=== PATIENT | male | born 1945 | race African-American/Black ===

== ENCOUNTER 2018-11-09 23:20 | Emergency (ER) | payer MEDICARE ==
[~2018-11-09] VITALS: Ht 177.8 cm; Wt 77.1 kg
[~2018-11-09 23:20] MED LIST: MULT-548 PO; VITA400T4 PO
[2018-11-09 23:44] VITALS: BP 172/91
[2018-11-10 00:26] LABS: Basophils # (auto) 0 uL; Basophils % (auto) 0.6 % (0.0-2.0); Eosinophils # (auto) 0.1 uL; Eosinophils % (auto) 1.7 % (0.0-7.0); Hematocrit 43.1 % (41.0-53.0); Hemoglobin 13.8 g/dL (13.5-17.5); Lymphocytes # (auto) 1.4 uL; Lymphocytes % (auto) 21.4 % (10.0-50.0); Mean Corpuscular Hemoglobin 28.9 pg (28.0-32.0); Mean Corpuscular Hgb Conc. 32.2 g/dL (32.0-36.0); Mean Corpuscular Volume 89.8 fL (80.0-100.0); Monocytes # (auto) 0.5 uL; Monocytes % (auto) 7.7 % (0.0-12.0); Neutrophils # (auto) 4.3 uL; Neutrophils % (auto) 68.6 % (37.0-80.0); Nucleated Red Blood Cells % 0.1 %; Platelet Count (auto) 254 10^3/uL (140-450); Red Blood Cells 4.79 10^6/uL (4.5-5.90); Red Cell Distribution Width 14.6 % (11.8-14.3); White Blood Cell 6.3 10^3/uL (4.4-10.8)
[2018-11-10 00:32] LABS: Urine Bacteria FEW /hpf (None Seen); Urine Blood TRACE /uL (Negative); Urine Mucus FEW (None Seen); Urine Specific Gravity 1.021 (1.001-1.035); Urine WBC 1 /hpf (0 - 3)
[2018-11-10 00:39] LABS: INR 0.94 (0.9-1.15); Partial Thromboplastin Time 20.5 sec (23.78-33.04); Prothrombin Time 10.1 sec (9.27-12.13)
[2018-11-10 00:43] LABS: Albumin 3.7 g/dL (3.4-5.0); Anion Gap 8 (5-15); Blood Urea Nitrogen 19 mg/dL (7-18); Calcium 9.2 mg/dL (8.5-10.1); Carbon Dioxide 25 mmol/L (21-32); Chloride 107 mmol/L (98-107); Glucose 142 mg/dL (74-106); Lipase 133 U/L (73-393); Magnesium 2.4 mg/dL (1.6-2.6); Potassium 3.8 mmol/L (3.5-5.1); Sodium 140 mmol/L (136-145)
[2018-11-10 00:45] LABS: Alanine Aminotransferase 13 U/L (16-61); Amylase 83 U/L (25-115); Aspartate Aminotransferase 14 U/L (15-37); BUN/Creatinine Ratio 9.8; GFR African American 44 mL/min; GFR Non-African American 36 mL/min
[2018-11-10 00:51] LABS: Alkaline Phosphatase 80 U/L (45-117); Bilirubin, Total 0.3 mg/dL (0.2-1.0); Total Protein 7.6 g/dL (6.4-8.2)
== END 2018-11-10 03:22 | disposition left against medical advice (07) ==
LOC: ER 23:21
DX: R10.84 Generalized abdominal pain (principal); Z53.21 Procedure and treatment not carried out due to patient leaving prior to being seen by health care provider
CPT/HCPCS: 36415; 71046; 74176; 80053; 81001; 82150; 83690; 83735; 84484; 85025; 85610; 85730; 93005

== ENCOUNTER 2019-10-14 17:39 | Inpatient (IN) | payer MEDICARE ==
[~2019-10-14] VITALS: Ht 177.8 cm; Wt 72.9 kg
--- NOTE | 2019-10-14 | NUR ---
ASSESSMENT PERFORMED, PATIENT DENIED PAIN OR DISCOMFORT. PATIENT ABLE TO AMBULATE.
--- NOTE | 2019-10-14 03:00 | NUR ---
PATIENT HAS AN ORDER FOR CONTINUES IRRIGATION. ASKED CHARGE NURSE AND HOUSE SUP FOR SUPPLIES. ONCE THE UROLOGY CAR WAS PROVIDED, I PRECEDED TO DISCONTINUE THE ONE CATHETER TO START ONE WITH THREE LUMENS. PATIENT WAS NOT TOLERATING WELL THE PROCEDURE, HE WAS IN AGONIZING PAIN. CALLED ANOTHER RN FOR HELP, THE CATHETER WAS IN THE RIGHT PLACED, IT WAS DRAINING, HOWEVER THE IRRIGATION FLUID WAS NOT RUNNING. WE DISCONNECTED THE PORTS, IRRIGATED WITH A SYRINGE, A LOT OF BLOOD CLOTHS CAME OUT, THE ENTIRE TIME THE PATIENT WAS IN PAIN. WE RECONNECTED THE IRRIGATION AND STILL NOT RUNNING, SO WE STOPPED THE PROCEDURE AND DECIDED TO DISCONTINUE THE CATHETER ALL TOGETHER. IT WAS A LOT OF BLOOD STILL DRAINING FROM THE HEMATURIA, WE CLEANED AND DRIED THE PATIENT AND NOTIFIED CHARGE.
[2019-10-14 05:00] VITALS: BP 161/89
--- NOTE | 2019-10-14 05:00 | NUR ---
NOTIFIED VIVIANA MONTGOMERY OF THE UNSUCCESSFUL IRRIGATION CATHETER PLACEMENT. NO NEW ORDERS
[2019-10-14 18:29] LABS: Urine Bacteria NONE SEEN /hpf (None Seen); Urine Blood 3+ /uL (Negative); Urine WBC 14 /hpf (0 - 3)
[2019-10-14 18:40] LABS: Basophils # (auto) 0.1 10 ^3/uL (0-0.2); Basophils % (auto) 1.5 % (0.0-2.0); Eosinophils # (auto) 0.1 10 ^3/uL (0-0.8); Eosinophils % (auto) 1.3 % (0.0-7.0); Hematocrit 39.8 % (41.0-53.0); Hemoglobin 13.1 g/dL (13.5-17.5); Lymphocytes # (auto) 1.6 10 ^3/uL (0.4-5.4); Lymphocytes % (auto) 22.8 % (10.0-50.0); Mean Corpuscular Hemoglobin 29.5 pg (28.0-32.0); Mean Corpuscular Hgb Conc. 32.9 g/dL (32.0-36.0); Mean Corpuscular Volume 89.6 fL (80.0-100.0); Monocytes # (auto) 0.6 10 ^3/uL (0-1.3); Monocytes % (auto) 9.4 % (0.0-12.0); Neutrophils # (auto) 4.5 10 ^3/uL (1.6-8.6); Nucleated Red Blood Cells % 0.2 %; Platelet Count (auto) 238 10^3/uL (140-450); Red Blood Cells 4.44 10^6/uL (4.5-5.90); Red Cell Distribution Width 15.5 % (11.8-14.3); White Blood Cell 6.9 10^3/uL (4.4-10.8)
[2019-10-14 18:54] LABS: Urine Specific Gravity 1.028 (1.001-1.035)
[2019-10-14 18:55] LABS: Albumin 3.7 g/dL (3.4-5.0); Calcium 8.3 mg/dL (8.5-10.1); Chloride 110 mmol/L (98-107); Potassium 3.6 mmol/L (3.5-5.1); Sodium 142 mmol/L (136-145)
[2019-10-14 18:56] LABS: INR 1.01 (0.9-1.15)
[2019-10-14 19:03] LABS: Alanine Aminotransferase 15 U/L (16-61); Alkaline Phosphatase 80 U/L (45-117); Anion Gap 8 (5-15); Aspartate Aminotransferase 14 U/L (15-37); BUN/Creatinine Ratio 8.9; Bilirubin, Total 0.3 mg/dL (0.2-1.0); Blood Urea Nitrogen 21 mg/dL (7-18); Carbon Dioxide 24 mmol/L (21-32); GFR African American 35 mL/min; GFR Non-African American 29 mL/min; Glucose 112 mg/dL (74-106); Total Protein 7.3 g/dL (6.4-8.2)
[2019-10-14] MEDS ORDERED: SODIUM CHLORIDE 0.9% 1,000 ML IVB ONE (21:06)
[2019-10-14] MEDS ORDERED: cefTRIAXone 1GM/50ML D5W 50 ML IV ONE (21:30)
[2019-10-14] MEDS ORDERED: MORPHINE SULF INJ 2 MG/ML SYRINGE 1ML IV PRN (21:30)
[2019-10-14] MEDS: NITROGLYCERIN 0.4 MG SL TAB SL PRN ×3 (21:38→22:00)
[2019-10-14] MEDS ORDERED: LACTATED RINGER'S 1,000 ML IV ONE (22:00)
[2019-10-14] MEDS ORDERED: cloNIDine HCL 0.1 MG TAB PO PRN (22:15)
--- NOTE | 2019-10-14 23:18 | NUR ---
Patient arrived to the unit, patient was introduced to RN and METAL SPINNER, vital signs taken, B/P 171/76, patient complaining of pain, will perform assessment once patient has settle down in his room. POC explained to patient. F/C noted, draining dark red . Will continue to monitor.
[2019-10-14 23:30] VITALS: BP 171/76
[2019-10-14] MEDS ORDERED: NIFEdipine ER 30 MG TAB PO ONE (23:45)
[2019-10-14] MEDS ORDERED: hydrALAZINE HCL 20 MG/ML VL IV PRN (23:45)
[2019-10-14 23:57] VITALS: BP 171/76
[2019-10-15] MEDS ORDERED: NITROGLYCERIN 0.4 MG SL TAB SL PRN
[2019-10-15] MEDS ORDERED: DEXTROSE (50%) 50ML SYRG IV PRN
[2019-10-15] MEDS ORDERED: ASPI-404 PO (01:11)
[2019-10-15] MEDS ORDERED: IBUP800T24 PO (01:11)
[2019-10-15] MEDS ORDERED: CHOL20007 PO (01:11)
[2019-10-15] MEDS ORDERED: CLOP75TA28 PO (01:11)
[2019-10-15] MEDS ORDERED: PNEUMOCOCCAL VACC POLYS 25 MCG/0.5 ML VIAL IM ONE (01:15)
[2019-10-15] MEDS ORDERED: INFLUENZA QUAD 2019-2020 0.5ml SYRG IM ONE (01:15)
[2019-10-15] MEDS: LACTATED RINGER'S 1,000 ML IV SCH ×4 (02:14→21:56)
[2019-10-15 05:00] VITALS: BP 161/89
[2019-10-15] MEDS: LORazepam 0.5 MG TAB PO PRN (05:19)
[2019-10-15 05:58] LABS: Basophils # (auto) 0 10 ^3/uL (0-0.2); Basophils % (auto) 0.7 % (0.0-2.0); Eosinophils # (auto) 0.1 10 ^3/uL (0-0.8); Eosinophils % (auto) 2.6 % (0.0-7.0); Hematocrit 35.5 % (41.0-53.0); Hemoglobin 12.2 g/dL (13.5-17.5); Lymphocytes % (auto) 35.6 % (10.0-50.0); Mean Corpuscular Hemoglobin 30.5 pg (28.0-32.0); Mean Corpuscular Hgb Conc. 34.4 g/dL (32.0-36.0); Mean Corpuscular Volume 88.7 fL (80.0-100.0); Monocytes # (auto) 0.7 10 ^3/uL (0-1.3); Monocytes % (auto) 12.2 % (0.0-12.0); Neutrophils # (auto) 2.8 10 ^3/uL (1.6-8.6); Neutrophils % (auto) 48.9 % (37.0-80.0); Nucleated Red Blood Cells % 0.1 %; Platelet Count (auto) 216 10^3/uL (140-450); Red Blood Cells 4.01 10^6/uL (4.5-5.90); Red Cell Distribution Width 15.4 % (11.8-14.3); White Blood Cell 5.6 10^3/uL (4.4-10.8)
[2019-10-15 06:16] LABS: Calcium 8.1 mg/dL (8.5-10.1); Magnesium 2.2 mg/dL (1.6-2.6); Potassium 3.8 mmol/L (3.5-5.1)
[2019-10-15 06:23] LABS: Albumin 3.3 g/dL (3.4-5.0); BUN/Creatinine Ratio 11.1; Bilirubin, Total 0.4 mg/dL (0.2-1.0); Phosphorus 3.4 mg/dL (2.5-4.90); Total Protein 6.4 g/dL (6.4-8.2)
[2019-10-15 06:24] LABS: INR 1.03 (0.9-1.15); Partial Thromboplastin Time 27.6 sec (23.64-32.05)
[2019-10-15] MEDS: InsuLIN REG 1unit/0.01ml Soln (100units/ml) SC SCH ×3 (06:44→16:45)
[2019-10-15] MEDS: ACCU-CHEK COMFORT CURVE STRIP VI SCH ×4 (06:44→21:54)
--- NOTE | 2019-10-15 07:50 | NUR ---
OPENING SHIFT NOTE: PATIENT AWAKE RESTING IN BED. PATIENT A/OX4, REPORTING PAIN 10/10 LAST NIGHT WHEN NOC RN ATTEMPTED TO INSERT BOOKER. BOOKER NOT IN PLACE, THIS RN NOTED BRIGHT RED BLOOD ON CHUX, PATIENT CLEANED UP IN BED, TOLERATED WELL AND GIVEN URINAL. PATIENT RESPIRATIONS EVEN AND UNLABORED. CALL LIGHT WITHIN REACH, FALL PRECAUTIONS IN PLACE, WILL CONTINUE TO MONITOR.
[2019-10-15 08:25] VITALS: BP 145/69
--- NOTE | 2019-10-15 09:06 | NUR ---
EXCELSIOR PICKER MADE AWARE OF NEED FOR UROLOGY CART. CHICHI PAGED TO HAVE CART BROUGHT TO BEDSIDE FOR CBI PLACEMENT.
[2019-10-15] MEDS: CIPROFLOXACIN 400MG/200ML 200 ML IV SCH ×2 (09:21→21:54)
[2019-10-15] MEDS: DOCUSATE SOD 100 MG CAP PO SCH (09:21)
[2019-10-15] MEDS: NIFEdipine ER 30 MG TAB PO SCH (09:22)
--- NOTE | 2019-10-15 09:26 | NUR ---
PATIENT DENIES HAVING A TURP DONE.
[2019-10-15] MEDS ORDERED: LIDOCAINE 2% JELLY 11ml (GLYDO) UR ONE (09:45)
[2019-10-15] MEDS ORDERED: ASPirin 81 mg TAB PO SCH (10:00)
--- NOTE | 2019-10-15 10:17 | NUR ---
BOOKER ATTEMPT: CBI ORDERED. BOOKER ATTEMPTED BY SENIOR PROJECT MANAGER ENGINEERING. UNSUCCESSFUL AT THIS TIME.
--- NOTE | 2019-10-15 10:26 | NUR ---
PAGE MADE TO VIVIANA LARA REGARDING ATTEMPTED CBI.
--- NOTE | 2019-10-15 10:40 | NUR ---
PAIN MEDS: PATIENT IN PAIN 04/09 CALL MADE TO MD NAVARRO. NO ORDERS RECEIVED.
--- NOTE | 2019-10-15 12:05 | NUR ---
BOOKER DISCONTINUED: 22FR THREE WAY BOOKER WITH NO URINE OUTPUT REMOVED. CATHETER INTACT. PATIENT ABLE TO URINATE 100ML INTO URINAL AFTER, NOTED TO BE BRIGHT RED IN COLOR.
[2019-10-15] MEDS: OXYCODONE W/ ACETAMINOPHEN 5/325MG TABLET PO PRN ×2 (12:21→21:54)
--- NOTE | 2019-10-15 12:22 | NUR ---
PER PATIENT HE IS NOT A DIABETIC, AND REFUSED ACCUCHECK AT THIS TIME.
[2019-10-15 12:30] VITALS: BP 130/87
[2019-10-15] MEDS ORDERED: ceFAZolin 1GM/50ML 100 ML IV ONE (16:16)
--- NOTE | 2019-10-15 16:20 | NUR ---
PATIENT TAKEN DOWN TO OR.
[2019-10-15] MEDS ORDERED: DexAMETHasone SOD PHOS 10MG/1ML VIAL INJ IV ONE (16:35)
[2019-10-15] MEDS ORDERED: MIDAZOLAM HCL 1MG/1ML-2 ML VIAL ONE (16:48)
[2019-10-15] MEDS ORDERED: fentaNYL CITRATE 100 MCG/2 ML VL ONE (16:48)
[2019-10-15 17:05] VITALS: BP 100/58
[2019-10-15] MEDS ORDERED: LABETALOL HCL 5 MG/ML 4ML SYRINGE IV PRN (17:30)
[2019-10-15] MEDS ORDERED: MORPHINE SULFATE 4 MG/ML SYR/VIAL IV PRN (17:30)
[2019-10-15] MEDS ORDERED: ONDANSETRON HCL 4 MG/2 ML VIAL IV PRN ×2 (17:30)
[2019-10-15] MEDS ORDERED: ePHEDrine SULFATE 50 MG/ML AMP IV PRN (17:30)
--- NOTE | 2019-10-15 18:22 | NUR ---
PATIENT BACK FROM OR: TELE BOX RE-CONNECTED, HR IN THE 60'S. VS WNL. PATIENT A/OX4, RESTING COMFORTABLY. RESPIRATIONS EVEN AND UNLABORED ON ROOM AIR. PATIENT HAS CBI RUNNING, NOTED CLEAR URINE 900ML IN BAG. CALL LIGHT WITHIN REACH, WILL CONTINUE TO MONITOR.
--- NOTE | 2019-10-15 18:53 | NUR ---
IV FLUID: PATIENT WISHES TO BE "OFF THE IV FLUID RIGHT NOW." WILL LET CIELO WEISS KNOW PATIENTS WISHES TO BE SALINE LOCKED AT THIS TIME. Addendum: 10/15/19 at 1854 by TONY HAWKINS RN RN MISTAKEN ENTRY, FLUIDS RUNNING ORDERED FOR THIS PATIENT.
--- NOTE | 2019-10-15 19:08 | NUR ---
CARE ENDORSED TO SANGITA WEISS.
--- NOTE | 2019-10-15 19:40 | NUR ---
PATIENT WAS IN BED WHEN I WAS RECEIVING REPORT AT BED SIDE, HE DENIED PAIN OR DISCOMFORT, DENIED NEED FOR ANYTHING ELSE. FEW MIN LATER, I RECEIVED REPORT FROM THE COOK SUPERVISOR THAT THE PATIENT WAS FOUND ON THE FLOOR ON HIS BOTTOM, WHEN I WENT TO SEE THE PATIENT HE WAS SITTING ON A CHAIR NEXT TO THE BED. UPON ASSESSMENT PATIENT EXPLAINED HE TRIED TO GET UP, AND HI LEG JUST GAVE OUT FROM UNDER HIM. PATIENT HAD A PROCEDURE EARLIER AND CAME BACK AROUND AN HR PRIOR TO CHANGE OF SHIFT ACCORDING TO AM NURSE. PATIENT DENIED PAIN, OR HITTING HIS HEAD ON ANYTHING. I EXPLAINED TO PATIENT THAT D/T ANESTHESIA ON HIS BACK FOR THE PROCEDURE, HIS LEGS WOULD BE WEAK, PLACED THE PATIENT ON HIS BED, BED ALARM ON, BED ON LOWEST POSITION, CALL LIGHT WITH IN REACH. ASKED PATIENT TO PLEASE USE CALL LIGHT IF HE NEEDS ANYTHING OR TO TRANSFER TO THE CHAIR. PATIENT NEEDS REINFORCEMENT BECAUSE I WAS GATHERING LINEN TO CHANGE HIS BED, HE TRANSFERRED HIMSELF TO THE BED TO GET HIS CELL PHONE AND I WAS ABLE TO CATCH HIM HE WAS GOING BACK TO THE CHAIR, HE WAS VERY UNSTABLE. I WILL CONTINUE TO ROUND THE PATIENT MORE OFTEN TO PREVENT ANY FALLS. FALLS PRECAUTION BAND PLACED ON PATIENT.
--- NOTE | 2019-10-15 20:30 | NUR ---
PATIENT COMFORTABLE IN BED, F/C DRAINING FREELY.
[2019-10-15] MEDS ORDERED: InsuLIN REG 1unit/0.01ml Soln (100units/ml) SC SCH (22:00)
--- NOTE | 2019-10-15 23:33 | NUR ---
PATIENT RESTING, DENIES DISCOMFORT
[2019-10-16] MEDS: OXYCODONE W/ ACETAMINOPHEN 5/325MG TABLET PO PRN ×2 (03:13→09:17)
[2019-10-16] MEDS: LORazepam 0.5 MG TAB PO PRN (04:18)
[2019-10-16 05:30] VITALS: BP 140/74
[2019-10-16] MEDS: ACCU-CHEK COMFORT CURVE STRIP VI SCH ×2 (06:28→11:30)
[2019-10-16] MEDS: InsuLIN REG 1unit/0.01ml Soln (100units/ml) SC SCH ×2 (06:28→11:30)
--- NOTE | 2019-10-16 07:48 | NUR ---
OPENING SHIFT NOTE: PATIENT ASLEEP RESTING IN BED. PATIENT EASILY AWOKEN A/OX4 BOOKER CBI IN PLACE DRAINING CLEAR. PATIENT RESPIRATIONS EVEN AND UNLABORED. CALL LIGHT WITHIN REACH, FALL PRECAUTIONS IN PLACE BED ALARM ON, WILL CONTINUE TO MONITOR.
[2019-10-16] MEDS ORDERED: PNEUMOCOCCAL VACC POLYS 25 MCG/0.5 ML VIAL IM ONE (08:45)
[2019-10-16 08:46] VITALS: BP 144/88
[2019-10-16] MEDS: CIPROFLOXACIN 400MG/200ML 200 ML IV SCH (09:17)
[2019-10-16] MEDS: DOCUSATE SOD 100 MG CAP PO SCH (09:17)
[2019-10-16] MEDS: NIFEdipine ER 30 MG TAB PO SCH (09:17)
--- NOTE | 2019-10-16 10:20 | NUR ---
PAIN REASSESSMENT Pain reassessment performed. Patient states decrease in pain to 2 out of 10. Will continue to monitor.
[2019-10-16 11:59] LABS: Basophils # (auto) 0.1 10 ^3/uL (0-0.2); Basophils % (auto) 0.4 % (0.0-2.0); Eosinophils # (auto) 0 10 ^3/uL (0-0.8); Eosinophils % (auto) 0.1 % (0.0-7.0); Hematocrit 36.2 % (41.0-53.0); Hemoglobin 12.3 g/dL (13.5-17.5); Lymphocytes # (auto) 1.5 10 ^3/uL (0.4-5.4); Lymphocytes % (auto) 9.5 % (10.0-50.0); Mean Corpuscular Hemoglobin 30.2 pg (28.0-32.0); Mean Corpuscular Hgb Conc. 33.9 g/dL (32.0-36.0); Monocytes # (auto) 1.6 10 ^3/uL (0-1.3); Monocytes % (auto) 10.4 % (0.0-12.0); Neutrophils # (auto) 12.4 10 ^3/uL (1.6-8.6); Neutrophils % (auto) 79.6 % (37.0-80.0); Platelet Count (auto) 210 10^3/uL (140-450); Red Blood Cells 4.06 10^6/uL (4.5-5.90); Red Cell Distribution Width 15.7 % (11.8-14.3); White Blood Cell 15.5 10^3/uL (4.4-10.8)
[2019-10-16 12:25] LABS: BUN/Creatinine Ratio 13.5; Calcium 8.3 mg/dL (8.5-10.1); Potassium 4.1 mmol/L (3.5-5.1)
[2019-10-16 13:00] VITALS: BP 141/85
[2019-10-16] MEDS ORDERED: AMLO10TA13 PO (15:39)
[2019-10-16] MEDS ORDERED: NITR-52 PO (15:40)
--- NOTE | 2019-10-16 16:57 | NUR ---
DISCHARGE: PATIENT DISCHARGED. THREE WAY BOOKER CONNECTED TO URINARY LEG BAG, PATIENT GIVEN ALL FOLLOW UP INSTRUCTIONS. PATIENT VERBALIZED UNDERSTANDING. IV DISCONTINUED, MANUAL PRESSURE APPLIED. TELE RETURNED TO CARDIAC UNIT. PATIENT LEFT WITH ALL BELONGINGS AND AMBULATED OUT TO PRIVATE AUTO WITHOUT INCIDENCE.
== END 2019-10-16 17:07 | disposition home or self-care (01) | DRG 694 ==
LOC: ER 17:39 → TELE 17:40 → TELE-WESTW 23:10
PROVIDERS: ADMIT Hospitalist; ATTEND Internal Medicine Nephrology
PROC: 3E1K88Z Irrigation of Genitourinary Tract using Irrigating Substance, Via Natural or Artificial Opening Endoscopic (ICD-10-PCS; 2019-10-15)
PROC: 0TCB8ZZ Extirpation of Matter from Bladder, Via Natural or Artificial Opening Endoscopic (ICD-10-PCS; principal; 2019-10-15 16:35)
DX: N13.8 Other obstructive and reflux uropathy (principal); N17.9 Acute kidney failure, unspecified; I16.9 Hypertensive crisis, unspecified; E44.1 Mild protein-calorie malnutrition; N10 Acute pyelonephritis; N18.4 Chronic kidney disease, stage 4 (severe); R31.0 Gross hematuria; D63.8 Anemia in other chronic diseases classified elsewhere; I25.10 Atherosclerotic heart disease of native coronary artery without angina pectoris; I12.9 Hypertensive chronic kidney disease with stage 1 through stage 4 chronic kidney disease, or unspecified chronic kidney disease; F17.210 Nicotine dependence, cigarettes, uncomplicated; M10.9 Gout, unspecified; Z90.79 Acquired absence of other genital organ(s); Z79.02 Long term (current) use of antithrombotics/antiplatelets; Z79.82 Long term (current) use of aspirin; Z82.49 Family history of ischemic heart disease and other diseases of the circulatory system; Z82.62 Family history of osteoporosis; Z95.5 Presence of coronary angioplasty implant and graft; Z80.9 Family history of malignant neoplasm, unspecified; Z68.23 Body mass index [BMI] 23.0-23.9, adult; Z87.438 Personal history of other diseases of male genital organs
CPT/HCPCS: 36415; 51702; 71045; 74176; 76700; 80048; 80053; 80061; 81001; 82550; 83036; 83735; 84100; 84484; 85025; 85045; 85610; 85730; 96365; G0378; J0690; J0696; J1100; J2250

== ENCOUNTER → 2019-11-13 | Outpatient (CLI) | payer MEDICARE ==
[~2019-11-13] MED LIST changes: +AMLO10TA13 PO; +ASPI-404 PO; +CLOP75TA28 PO; +NITR-52 PO; -VITA400T4 PO
== END | disposition home or self-care (01) ==
LOC: LAB 07:59
PROVIDERS: ATTEND Urology
DX: N39.0 Urinary tract infection, site not specified (principal)
CPT/HCPCS: 87086

== ENCOUNTER → 2019-12-07 | Outpatient (CLI) | payer MEDICARE ==
[~2019-12-07] MED LIST changes: -AMLO10TA13 PO
== END | disposition home or self-care (01) ==
LOC: LAB 10:21
PROVIDERS: ATTEND Urology
DX: N39.0 Urinary tract infection, site not specified (principal); N40.0 Benign prostatic hyperplasia without lower urinary tract symptoms
CPT/HCPCS: 84153; 84154

== ENCOUNTER 2020-10-30 10:07 | Emergency (ER) | payer MEDICARE, OTHER ==
[~2020-10-30] VITALS: Ht 177.8 cm; Wt 72.6 kg
[~2020-10-30 10:07] MED LIST changes: -ASPI-404 PO; +ASPI-543 PO
[2020-10-30 10:18] VITALS: BP 139/88
[2020-10-30] MEDS ORDERED: methylPREDNISolone SOD SUCC 125 MG/2 ML VL IM ONE (11:00)
[2020-10-30] MEDS ORDERED: LORATADINE 10 MG TAB PO ONE (11:00)
== END 2020-10-30 11:31 | disposition home or self-care (01) ==
LOC: ER 10:08
DX: L25.9 Unspecified contact dermatitis, unspecified cause (principal); F17.210 Nicotine dependence, cigarettes, uncomplicated
CPT/HCPCS: 96372; 99283; J2930

== ENCOUNTER 2020-11-18 01:07 | Emergency (ER) | payer OTHER ==
[~2020-11-18] VITALS: Ht 177.8 cm; Wt 73.0 kg
[2020-11-18] MEDS ORDERED: cefTRIAXone 1GM/50ML D5W 50 ML IV ONE (01:30)
[2020-11-18 02:16] LABS: Basophils # (auto) 0.1 10 ^3/uL (0-0.2); Basophils % (auto) 1.7 % (0.0-2.0); Eosinophils # (auto) 0.1 10 ^3/uL (0-0.8); Eosinophils % (auto) 1.9 % (0.0-7.0); Hematocrit 36.2 % (41.0-53.0); Hemoglobin 12.4 g/dL (13.5-17.5); Lymphocytes # (auto) 1.6 10 ^3/uL (0.4-5.4); Lymphocytes % (auto) 30.9 % (10.0-50.0); Mean Corpuscular Hemoglobin 30.2 pg (28.0-32.0); Mean Corpuscular Hgb Conc. 34.2 g/dL (32.0-36.0); Mean Corpuscular Volume 88.3 fL (80.0-100.0); Monocytes # (auto) 0.8 10 ^3/uL (0-1.3); Monocytes % (auto) 15.1 % (0.0-12.0); Neutrophils # (auto) 2.6 10 ^3/uL (1.6-8.6); Neutrophils % (auto) 50.4 % (37.0-80.0); Nucleated Red Blood Cells % 0.1 %; Platelet Count (auto) 214 10^3/uL (140-450); Red Cell Distribution Width 14.4 % (11.8-14.3); White Blood Cell 5.2 10^3/uL (4.4-10.8)
[2020-11-18 02:29] LABS: BUN/Creatinine Ratio 11.9; Calcium 8.2 mg/dL (8.5-10.1); Potassium 3.7 mmol/L (3.5-5.1)
[2020-11-18] MEDS ORDERED: HYDROcodone-ACET 5/325MG TAB PO ONE (03:45)
[2020-11-18] MEDS ORDERED: hydrALAZINE HCL 20 MG/ML VL IV ONE ×2 (03:45→05:00)
[2020-11-18 05:49] VITALS: BP 146/78
== END 2020-11-18 05:55 | disposition home or self-care (01) ==
LOC: ER 01:11
DX: R79.89 Other specified abnormal findings of blood chemistry (principal); R74.8 Abnormal levels of other serum enzymes; I25.10 Atherosclerotic heart disease of native coronary artery without angina pectoris; M10.9 Gout, unspecified; F17.210 Nicotine dependence, cigarettes, uncomplicated
CPT/HCPCS: 36415; 71045; 80048; 83605; 85025; 86850; 86900; 86901; 93005; 96365; 96375; 96376; 99285; J0360; J0696

== ENCOUNTER 2021-05-22 13:27 | Emergency (ER) | payer OTHER ==
[~2021-05-22] VITALS: Ht 177.8 cm; Wt 72.7 kg
[2021-05-22 18:06] VITALS: BP 116/65
[2021-05-22] MEDS ORDERED: cloNIDine HCL 0.1 MG TAB PO ONE (18:30)
== END 2021-05-22 19:39 | disposition home or self-care (01) ==
LOC: ER 13:27
DX: M72.2 Plantar fascial fibromatosis (principal); R03.0 Elevated blood-pressure reading, without diagnosis of hypertension; F17.210 Nicotine dependence, cigarettes, uncomplicated
CPT/HCPCS: 73630

== ENCOUNTER 2021-08-13 15:26 | Inpatient (IN) | payer OTHER ==
[~2021-08-13] VITALS: Ht 182.9 cm; Wt 67.5 kg
[2021-08-13 16:33] LABS: Basophils # (auto) 0 10 ^3/uL (0-0.2); Basophils % (auto) 0.3 % (0.0-2.0); Eosinophils # (auto) 0.1 10 ^3/uL (0-0.8); Eosinophils % (auto) 2.2 % (0.0-7.0); Hematocrit 33.8 % (41.0-53.0); Hemoglobin 11.2 g/dL (13.5-17.5); Lymphocytes # (auto) 1.3 10 ^3/uL (0.4-5.4); Lymphocytes % (auto) 32.6 % (10.0-50.0); Mean Corpuscular Hemoglobin 29.4 pg (28.0-32.0); Mean Corpuscular Hgb Conc. 33.1 g/dL (32.0-36.0); Mean Corpuscular Volume 88.9 fL (80.0-100.0); Monocytes # (auto) 0.5 10 ^3/uL (0-1.3); Monocytes % (auto) 13.3 % (0.0-12.0); Neutrophils % (auto) 51.6 % (37.0-80.0); Nucleated Red Blood Cells % 0.1 %; Red Cell Distribution Width 15.3 % (11.8-14.3)
[2021-08-13 16:49] LABS: INR 1.13 (0.9-1.15); Partial Thromboplastin Time 29.2 sec (23.6-33.0)
[2021-08-13 16:53] LABS: Albumin 3.3 g/dL (3.4-5.0); Calcium 8.1 mg/dL (8.5-10.1); Magnesium 2.6 mg/dL (1.6-2.6); Potassium 3.8 mmol/L (3.5-5.1)
[2021-08-13 16:59] LABS: BUN/Creatinine Ratio 10.7; Bilirubin, Total 0.4 mg/dL (0.2-1.0); Total Protein 6.2 g/dL (6.4-8.2)
[2021-08-13] MEDS ORDERED: ASPirin 325 MG TAB PO ONE (18:00)
[2021-08-13 18:11] LABS: Urine Bacteria FEW /hpf (None Seen); Urine Blood Negative /uL (Negative); Urine Mucus FEW (None Seen); Urine Specific Gravity 1.023 (1.001-1.035); Urine WBC 3 /hpf (0 - 3)
[2021-08-13] MEDS ORDERED: MORPHINE SULFATE INJECTION 2 MG/ML SYRG IV PRN (21:15)
[2021-08-13] MEDS ORDERED: ONDANSETRON HCL 4 MG/2 ML VIAL IV PRN (21:15)
[2021-08-13] MEDS ORDERED: NITROGLYCERIN 0.4 MG SL TAB SL PRN (21:15)
[2021-08-13] MEDS ORDERED: ACETAMINOPHEN 325 MG TAB PO PRN (21:15)
[2021-08-13] MEDS: ATORVASTATIN 20 MG TAB PO SCH (21:52)
[2021-08-13] MEDS ORDERED: FUROSEMIDE 40 MG/4 ML VIAL IV SCH (22:00)
[2021-08-13] MEDS: hydrALAZINE HCL 10 MG TAB PO PRN (23:01)
[2021-08-13 23:50] VITALS: BP 184/99
[2021-08-14] VITALS (7 sets, daily range): BP systolic 130–184; BP diastolic 78–99
[2021-08-14] MEDS ORDERED: hydrALAZINE HCL 20 MG/ML VL IV ONE (00:45)
[2021-08-14] MEDS: HYDROcodone-ACET 5/325MG TAB PO PRN ×2 (04:29→14:51)
[2021-08-14 05:38] LABS: Basophils # (auto) 0.1 10 ^3/uL (0-0.2); Basophils % (auto) 1.2 % (0.0-2.0); Eosinophils # (auto) 0.1 10 ^3/uL (0-0.8); Eosinophils % (auto) 1.5 % (0.0-7.0); Hematocrit 37.1 % (41.0-53.0); Hemoglobin 12.3 g/dL (13.5-17.5); Lymphocytes # (auto) 1.4 10 ^3/uL (0.4-5.4); Lymphocytes % (auto) 23.6 % (10.0-50.0); Mean Corpuscular Hemoglobin 29.4 pg (28.0-32.0); Mean Corpuscular Hgb Conc. 33.1 g/dL (32.0-36.0); Mean Corpuscular Volume 88.7 fL (80.0-100.0); Monocytes # (auto) 0.7 10 ^3/uL (0-1.3); Monocytes % (auto) 11.7 % (0.0-12.0); Neutrophils # (auto) 3.6 10 ^3/uL (1.6-8.6); Nucleated Red Blood Cells % 0.1 %; Red Blood Cells 4.18 10^6/uL (4.5-5.90); Red Cell Distribution Width 15.4 % (11.8-14.3); White Blood Cell 5.8 10^3/uL (4.4-10.8)
[2021-08-14 05:47] LABS: Potassium 3.5 mmol/L (3.5-5.1)
[2021-08-14] MEDS: hydrALAZINE HCL 10 MG TAB PO PRN ×2 (05:59→21:59)
[2021-08-14 06:10] LABS: Albumin 3.7 g/dL (3.4-5.0); BUN/Creatinine Ratio 10.9; Bilirubin, Total 0.6 mg/dL (0.2-1.0); Calcium 8.6 mg/dL (8.5-10.1); Total Protein 6.8 g/dL (6.4-8.2)
[2021-08-14] MEDS: cefTRIAXone 1GM/50ML D5W 50 ML IV SCH (09:13)
[2021-08-14] MEDS: FAMOTIDINE 20 MG TAB PO SCH (09:13)
[2021-08-14] MEDS: ASPirin-EC 81 mg tab PO SCH (09:13)
[2021-08-14] MEDS: FUROSEMIDE 40 MG/4 ML VIAL IV SCH ×2 (09:52→17:25)
[2021-08-14] MEDS: amLODIPine BESYLATE 5 MG TAB PO SCH (09:52)
[2021-08-14 10:36] LABS: Albumin 3.6 g/dL (3.4-5.0); Calcium 8.6 mg/dL (8.5-10.1); Potassium 3.6 mmol/L (3.5-5.1)
[2021-08-14 10:39] LABS: Bilirubin, Total 0.6 mg/dL (0.2-1.0); Total Protein 6.8 g/dL (6.4-8.2)
[2021-08-14] MEDS ORDERED: REGADENOSON 0.4 MG/5 ML SYRG IV ONE (10:45)
[2021-08-14 14:19] LABS: Magnesium 2.6 mg/dL (1.6-2.6); Phosphorus 3.9 mg/dL (2.5-4.90)
[2021-08-14 14:38] LABS: Urine Bacteria NONE SEEN /hpf (None Seen); Urine Blood Negative /uL (Negative); Urine Hyaline Cast FEW /lpf (0 - 2); Urine Specific Gravity 1.005 (1.001-1.035); Urine WBC <1 /hpf (0 - 3)
[2021-08-14 14:52] LABS: Protein, Urine 5.4 mg/dL (0.0-11.9); Sodium Urine 131 mmol/L (40-220)
[2021-08-14 14:54] LABS: Amphetamine Screen, Urine NEGATIVE (NEGATIVE); Barbiturate Scree,Urine NEGATIVE (NEGATIVE); Benzodiazephine Screen, Urine NEGATIVE (NEGATIVE); Cannabinoid Screen, Urine NEGATIVE (NEGATIVE); Cocaine Screen, Urine NEGATIVE (NEGATIVE); Creatinine, Urine 16 mg/dL (30.0-125.0); Opiate Scree,Urine NEGATIVE (NEGATIVE); Phencyclidine Screen, Urine NEGATIVE (NEGATIVE)
[2021-08-14] MEDS ORDERED: VIBE75TA PO (20:02)
[2021-08-14] MEDS ORDERED: POM (20:02)
[2021-08-14] MEDS ORDERED: OLME20TA53 PO (20:02)
[2021-08-14] MEDS: ATORVASTATIN 20 MG TAB PO SCH (21:15)
[2021-08-15] MEDS: HYDROcodone-ACET 5/325MG TAB PO PRN ×3 (01:56→17:09)
[2021-08-15 05:00] VITALS: BP 137/99
[2021-08-15] MEDS: FUROSEMIDE 40 MG/4 ML VIAL IV SCH ×2 (06:27→17:25)
[2021-08-15 08:40] VITALS: BP 148/78
[2021-08-15] MEDS: cefTRIAXone 1GM/50ML D5W 50 ML IV SCH (09:19)
[2021-08-15] MEDS: ASPirin-EC 81 mg tab PO SCH (09:20)
[2021-08-15] MEDS: FAMOTIDINE 20 MG TAB PO SCH (09:21)
[2021-08-15] MEDS: amLODIPine BESYLATE 5 MG TAB PO SCH (09:21)
[2021-08-15] MEDS ORDERED: MAGNESIUM OXIDE 400 MG TAB PO ONE (10:30)
[2021-08-15] MEDS ORDERED: CLOP75TA70 PO (11:45)
[2021-08-15 15:21] VITALS: BP_SYST 125; BP_SYST 169; BP_DIAS 65; BP_DIAS 84
[2021-08-15 17:00] VITALS: BP 155/74
[2021-08-15 18:49] LABS: Basophils # (auto) 0.1 10 ^3/uL (0-0.2); Basophils % (auto) 2.1 % (0.0-2.0); Eosinophils # (auto) 0 10 ^3/uL (0-0.8); Eosinophils % (auto) 0.4 % (0.0-7.0); Hematocrit 42.4 % (41.0-53.0); Hemoglobin 13.9 g/dL (13.5-17.5); Lymphocytes # (auto) 1.3 10 ^3/uL (0.4-5.4); Lymphocytes % (auto) 22.6 % (10.0-50.0); Mean Corpuscular Hemoglobin 29.1 pg (28.0-32.0); Mean Corpuscular Hgb Conc. 32.8 g/dL (32.0-36.0); Mean Corpuscular Volume 88.9 fL (80.0-100.0); Monocytes # (auto) 0.6 10 ^3/uL (0-1.3); Monocytes % (auto) 9.9 % (0.0-12.0); Neutrophils # (auto) 3.8 10 ^3/uL (1.6-8.6); Nucleated Red Blood Cells % 0.2 %; Red Blood Cells 4.76 10^6/uL (4.5-5.90); Red Cell Distribution Width 15.7 % (11.8-14.3); White Blood Cell 5.9 10^3/uL (4.4-10.8)
[2021-08-15 19:09] LABS: Calcium 9.1 mg/dL (8.5-10.1); Potassium 3.7 mmol/L (3.5-5.1)
[2021-08-15 19:11] LABS: BUN/Creatinine Ratio 15.1
[2021-08-15] MEDS: ATORVASTATIN 20 MG TAB PO SCH (21:28)
[2021-08-15] MEDS: HEPARIN SODIUM (PORCINE) 5000 UNITS/ML 1ML VIAL SC SCH (21:30)
[2021-08-15 22:00] VITALS: BP 146/87
[2021-08-16 05:00] VITALS: BP 121/68
[2021-08-16] MEDS: FUROSEMIDE 40 MG/4 ML VIAL IV SCH ×2 (05:15→17:45)
[2021-08-16 06:03] LABS: Basophils # (auto) 0 10 ^3/uL (0-0.2); Basophils % (auto) 0.7 % (0.0-2.0); Eosinophils # (auto) 0.1 10 ^3/uL (0-0.8); Eosinophils % (auto) 1.6 % (0.0-7.0); Hematocrit 40.1 % (41.0-53.0); Lymphocytes # (auto) 1.7 10 ^3/uL (0.4-5.4); Lymphocytes % (auto) 29.9 % (10.0-50.0); Mean Corpuscular Hemoglobin 28.7 pg (28.0-32.0); Mean Corpuscular Hgb Conc. 32.3 g/dL (32.0-36.0); Mean Corpuscular Volume 88.7 fL (80.0-100.0); Monocytes # (auto) 0.8 10 ^3/uL (0-1.3); Neutrophils # (auto) 3.2 10 ^3/uL (1.6-8.6); Neutrophils % (auto) 54.8 % (37.0-80.0); Nucleated Red Blood Cells % 0.1 %; Red Blood Cells 4.52 10^6/uL (4.5-5.90); Red Cell Distribution Width 15.7 % (11.8-14.3); White Blood Cell 5.8 10^3/uL (4.4-10.8)
[2021-08-16 06:35] LABS: BUN/Creatinine Ratio 16.8; Potassium 3.6 mmol/L (3.5-5.1)
[2021-08-16 08:32] VITALS: BP 121/58
[2021-08-16] MEDS: cefTRIAXone 1GM/50ML D5W 50 ML IV SCH (09:48)
[2021-08-16] MEDS: amLODIPine BESYLATE 5 MG TAB PO SCH (09:49)
[2021-08-16] MEDS: HEPARIN SODIUM (PORCINE) 5000 UNITS/ML 1ML VIAL SC SCH (09:50)
[2021-08-16] MEDS: FAMOTIDINE 20 MG TAB PO SCH (09:51)
[2021-08-16] MEDS ORDERED: CLOPIDOGREL BISULFATE 75 MG TAB PO SCH (10:00)
[2021-08-16] MEDS: HYDROcodone-ACET 5/325MG TAB PO PRN (10:22)
[2021-08-16 12:42] VITALS: BP 112/67
[2021-08-16] MEDS ORDERED: AML5T PO (16:07)
[2021-08-16] MEDS ORDERED: ATOR20TA50 PO (16:07)
[2021-08-16] MEDS ORDERED: FURO1TAB31 PO (16:07)
[2021-08-16 17:00] VITALS: BP 121/75
[2021-08-16 18:41] VITALS: BP 121/75
== END 2021-08-16 19:35 | disposition home or self-care (01) | DRG 280 ==
LOC: EDBD 15:26 → ER 15:30 → TELE 21:15 → TELE-WESTW 23:44
PROVIDERS: ADMIT Nurse Practitioner Family; ATTEND Nurse Practitioner Family
DX: I21.4 Non-ST elevation (NSTEMI) myocardial infarction (principal); N17.0 Acute kidney failure with tubular necrosis; I50.21 Acute systolic (congestive) heart failure; N39.0 Urinary tract infection, site not specified; I13.0 Hypertensive heart and chronic kidney disease with heart failure and stage 1 through stage 4 chronic kidney disease, or unspecified chronic kidney disease; F17.210 Nicotine dependence, cigarettes, uncomplicated; I25.10 Atherosclerotic heart disease of native coronary artery without angina pectoris; I45.10 Unspecified right bundle-branch block; M10.9 Gout, unspecified; N18.30 Chronic kidney disease, stage 3 unspecified; K21.9 Gastro-esophageal reflux disease without esophagitis; M19.90 Unspecified osteoarthritis, unspecified site; D63.1 Anemia in chronic kidney disease; I73.9 Peripheral vascular disease, unspecified; Z20.822 Contact with and (suspected) exposure to COVID-19; Z82.49 Family history of ischemic heart disease and other diseases of the circulatory system; Z82.62 Family history of osteoporosis; N40.1 Benign prostatic hyperplasia with lower urinary tract symptoms
CPT/HCPCS: 36415; 71045; 76775; 78452; 78582; 80048; 80053; 80307; 81001; 82306; 82570; 83735; 83880; 83970; 84100; 84156; 84300; 84484; 84550; 85025; 85379; 85610; 85730; 86803; 87086; 87426; 93005; 93017; 93306; 93925; 93970; 96374; G0378; J0696

== ENCOUNTER 2022-08-20 15:43 | Emergency (ER) | payer OTHER ==
[~2022-08-20] VITALS: Ht 177.8 cm; Wt 69.2 kg
[~2022-08-20 15:43] MED LIST changes: +AML5T PO; -ASPI-543 PO; +ATOR20TA50 PO; -CLOP75TA28 PO; +CLOP75TA70 PO; +FURO1TAB31 PO; -MULT-548 PO; -NITR-52 PO; +VIBE75TA PO
[2022-08-20 17:12] VITALS: BP 137/79
[2022-08-20] MEDS ORDERED: FLUORESCEIN SOD OPTH TEST STRIP LEFTEYE ONE (19:15)
[2022-08-20] MEDS ORDERED: TETRACAINE HCL 0.5% OPTH(EYE) SOLN 4ML LEFTEYE ONE (19:15)
[2022-08-20] MEDS ORDERED: POLYSOL15 OP (20:29)
== END 2022-08-20 20:32 | disposition home or self-care (01) ==
LOC: ER 15:43
DX: S05.02XA Injury of conjunctiva and corneal abrasion without foreign body, left eye, initial encounter (principal); I10 Essential (primary) hypertension; F17.210 Nicotine dependence, cigarettes, uncomplicated; X58.XXXA Exposure to other specified factors, initial encounter; Y93.89 Activity, other specified; Y92.89 Other specified places as the place of occurrence of the external cause; Y99.8 Other external cause status